=== PATIENT | female | born 1995 | race Caucasian/White ===

== ENCOUNTER 2024-02-26 14:06 | Emergency (ER) | payer OTHER ==
[2024-02-26] MEDS ORDERED: Ibuprofen 800 MG TAB ONE (14:18)
== END 2024-02-26 14:55 | disposition home or self-care (01) ==
LOC: BURERS 14:06
DX: S93.401A Sprain of unspecified ligament of right ankle, initial encounter (principal); X50.1XXA Overexertion from prolonged static or awkward postures, initial encounter; Y93.01 Activity, walking, marching and hiking
CPT/HCPCS: 99283